=== PATIENT | male | born 1995 | race Hispanic/Latino ===

== ENCOUNTER 2021-10-14 00:51 | Emergency (ER) | payer BC, SELFPAY ==
[2021-10-14 00:53] VITALS: BP 150/112; PULSE 57; RESP 28; TEMP 36.5; O2SAT 100
[2021-10-14 00:54] VITALS: BP 150/112; PULSE 50; RESP 28; TEMP 36.5; O2SAT 98; BMI 28.0
--- NOTE | 2021-10-14 01:13 | CT_ITS ---
STUDY: CT ABDOMEN AND PELVIS WITH CONTRAST REASON FOR EXAM: Male, 26 years old. LLQ abd pain Left sided abdominal pain x2 hours, history of appendectomy. RADIATION DOSAGE (If Supplied By Facility): CTDIvol = ( 15.31 ) mGy, DLP = ( 809.28 ) mGycm TECHNIQUE: Transaxial images were obtained from the dome of the diaphragm to the symphysis pubis without oral contrast. IV 100mL Isovue-370 was administered. Sagittal and coronal images were reconstructed. Individualized dose optimization techniques were used for this CT. COMPARISON: None. FINDINGS: LOWER CHEST: Unremarkable. LIVER: Unremarkable. GALLBLADDER/BILE DUCTS: Unremarkable. PANCREAS: Unremarkable. SPLEEN: Unremarkable. ADRENAL GLANDS: Unremarkable. KIDNEYS / URETERS: There is a 5 mm calculus in the proximal left ureter, just distal to the ureteropelvic junction. The proximal left ureter is dilated with moderate left hydronephrosis and perinephric stranding. No hydronephrosis on the right. BOWEL / MESENTERY: Unremarkable. No bowel obstruction. APPENDIX: Surgically absent. PERITONEUM: No free air. No free fluid. VESSELS: Abdominal aorta is normal caliber. RETROPERITONEUM: Unremarkable. REPRODUCTIVE ORGANS: Unremarkable. BLADDER: Unremarkable. ABDOMINAL WALL: Unremarkable. BONES: No acute abnormality. OTHER: None. CT/Abdomen/Pelvis W IV Cont ONLY IMPRESSION: Proximal left ureteral calculus with moderate left hydroureteronephrosis. Electronically Signed: Desi Amado MD at 2:09 EDT ,
--- NOTE | 2021-10-14 01:14 | ED.VIS.GI ---
HPI HPI - GI History of Present Illness Chief Complaint: Abd Pain Detail of Chief Complaint: Left lower quadrant abdominal pain starting 1 to 2 hours ago. Informant: patient Abdominal Pain/Flank Pain Onset: Today and Hours Timing: Continuous Quality: Sharp and Stabbing Location: LLQ and Left Flank Current Severity: Moderate Maximum Severity: Moderate Worsened by: Nothing Relieved by: Nothing Nausea/Vomiting/Emesis GI Symptom: Positive for Nausea; Negative for Vomiting Onset: Today Severity: Mild Diarrhea/Melena/Hematochezia GI Symptom: Negative for Diarrhea, Melena or Hematochezia Associated Symptoms Associated Symptoms: Negative for Dysuria, Frequency, Hematuria or Urgency Narrative Narrative: 26-year-old male prior appendectomy. Said he was feeling fine he woke up around midnight or so with left lower quadrant abdominal pain. When he went to sleep he said he was feeling fine without having any pain. He denies any fever or chills. No dysuria or hematuria. No history of kidney stones. He has nausea but no vomiting. No diarrhea or constipation. Denies any type of abdominal trauma. Denies any recent weight loss or abdominal pain. He states he is never had pain like this before and he has no history of diverticulitis. Prior similar symptoms: No Recent Illness/Hospitalization: No PFSH PFSH Medical History no medical history no medical history Home Medications hydrocodone-acetaminophen 5-325mg 5mg-325mg 1 tab PO Q4H PRN pain 4 days #20 tabs 10/14/21 [Rx Last Taken Unknown] ondansetron 4 mg disintegrating tablet 4 mg PO Q6H PRN nausea and vomiting #7 tabs 10/14/21 [Rx Last Taken Unknown] Allergy/AdvReac Type Severity Reaction Status Date / Time No Known Allergies Allergy Verified 10/14/21 00:57 Social History Smoking Status: Never smoker ROS ROS ED ROS Narrative Left lower quadrant abdominal pain. Nausea. Review of Systems ROS Unobtainable: Denies due to encephalopathy Constitutional Constitutional ED: Denies chills or fever(s) ENT ENT ED: Denies ear pain Cardiovascular Cardiovascular: Denies chest pain Respiratory/Chest Respiratory/Chest: Denies cough or dyspnea Gastrointestinal Gastrointestinal: Reports abdominal pain and nausea; Denies constipation, diarrhea, melena or vomiting Genitourinary Genitourinary ED: Denies dysuria or hematuria Musculoskeletal Musculoskeletal: Denies arthralgias Integumentary Denies abscess Neurologic Neurologic: Denies headache(s) Psychiatric Psychiatric: Denies anxiety Endocrine Endocrinology: Denies polydipsia Hematologic/Lymphatic Hematologic/Lymphatic: Denies easy bleeding Allergic/Immunologic Allergic/Immunologic ED: Denies mouth swelling or tongue swelling EXAM Physical Exam Narrative Exam Narrative: 26-year-old male vital signs stable afebrile. H EENT exam unremarkable. Moist [place] membranes. Neck nontender no lymphadenopathy. Lungs clear to auscultation bilaterally. Heart regular rhythm rate about 55 no murmur. Chest were nontender. Abdomen soft nondistended normal bowel sounds. No peritoneal signs. Tender in the left lower quadrant. No hernia or mass. No obstruction. No pulsatile mass. Both the right upper and right lower quadrants are unremarkable. Moving all 4 extremities. Back nontender. Neurologically is awake and alert. Const Vital Signs: 10/14/21 00:54 10/14/21 00:53 Temperature 97.7 F L 97.7 F L Temperature Source Oral Oral Pulse Rate 50 L 57 L Respiratory Rate 28 H 28 H Blood Pressure 150/112 H 150/112 H Blood Pressure Mean 124 124 Pulse Ox 98 100 Oxygen Delivery Method Room Air Room Air Positive well nourished and well developed; Negative for obese, cachectic, contractures or unkempt General Appearance ED: well developed and NAD; Negative for unkempt, cachectic or contractures Nutritional Appearance: Negative for cachectic or obese HEENT Reports moist mucous membranes normocephalic and atraumatic; Negative for trauma or tenderness Eyes PERRL and EOMs intact bilaterally General Eye ED: Negative for pale conjunctiva or scleral icterus Neck no lymphadenopathy, supple and no JVD General: Negative for tenderness Carotids: Negative for other Lymph Lymphatic: Negative for other Resp normal respiratory effort and clear to auscultation bilaterally Effort and Inspection: Negative for respiratory distress Auscultation: Negative for rales, rhonchi or wheezes Cardio regular rhythm, S1 normal heart sound, S2 normal heart sound and no murmurs; Negative for regular rate Rate: bradycardia GI non-distended and no masses; Negative for non-tender Inspection: Negative for abdominal distention Auscultation: normoactive bowel sounds Palpation: soft and tender; Negative for guarding, rigid, hepatomegaly, splenomegaly, hernia, mass, pulsatile mass or rebound tenderness present Back/Spine no CVA tenderness General Back: Negative for CVA tenderness Cervical Spine: Negative for cervical spine tenderness Thoracic Spine / Upper Back: Negative for thoracic spinal tenderness Lumbar Spine / Lower Back: Negative for lumbar spinal tenderness Extremity full ROM General Extremety ED: Negative for edema or tenderness General Extremity: Negative for edema Neuro CN's II-XII intact bilaterally and moves all extremities Sensorium / Orientation: alert, oriented to person, oriented to place, oriented to time and orientation impaired; Negative for confused, lethargic or stuporous Sensory Exam: No sensory level loss detected Motor Exam: strength 5/5 throughout Psych mental status grossly normal and thought process normal Appearance: Negative for unkempt Attitude: No agitated Mood & Affect: Negative for depressed Skin no wounds General Skin Exam: Negative for jaundice Lesions: no lesions Rashes: no rashes Trauma: Negative for abrasion Nails: Negative for discolored MDM MDM MDM Narrative Medical decision making narrative: 26-year-old with left lower quadrant left flank pain. Differential would include diverticulitis, kidney stone versus hernia. On exam he did not have any obvious hernia. He is never had a kidney stone or diverticulitis before. He is having pain nausea and vomiting. He will be treated with IV morphine, Toradol Zofran and IV fluids. CAT scan and labs are being obtained. Repeat exam patient doing well at 2:55 PM. He feels much better after being treated with pain medication. Currently is pain-free. His nausea is resolved. He had I discussed his test results and the diagnosis of the left ureteral proximal 5 mm kidney stone. He is comfortable being discharged home. He will be written for [employer] which we will fill here at our pharmacy if possible. Zofran prescription to have at home in case he is nauseated. And Motrin with his pain. Return if increasing pain, fever or intractable vomiting. Otherwise follow-up with urology. Urine strainer to evaluate passage of the stone. Lab Data Attestation: I reviewed the patient's lab results. Lab results narrative: CBC normal. White count 8.9. H&H of 14.8 and 44. Platelets 233. Electrolytes show a gap of 6 and a normal BUN and creatinine. Normal liver enzymes. Normal lipase of 117. Glucose is 125. Urinalysis showed gross hematuria with 250 occult blood and grade 100 red cells. No white cells or bacteria. No nitrites. CAT scan shows a left proximal 5 mm ureteral calculi with hydronephrosis and hydroureter. Labs: Laboratory Results - last 24 hr 10/14/21 10/14/21 10/14/21 01:05 01:05 02:10 WBC 8.9 RBC 5.04 Hgb 14.8 Hct 44.2 MCV 87.7 MCH 29.4 MCHC 33.5 RDW Std Deviation 38.0 RDW Coeff of Darius 11.9 Plt Count 233 MPV 9.2 Immature Gran % (Auto) 0.400 Neut % (Auto) 52.8 Lymph % (Auto) 35.8 [place] % (Auto) 8.6 Eos % (Auto) 2.1 Baso % (Auto) 0.3 Absolute Neuts (auto) 4.7 Absolute Lymphs (auto) 3.20 Nucleated RBC % 0 Sodium 140 Potassium 3.8 Chloride 107 Carbon Dioxide 27.0 Anion Gap 6 BUN 12 Creatinine 0.95 Estim Creat Clear Calc 119.53 Est GFR (MDRD) Af Amer 121 Est GFR (MDRD) Non-Af 100 BUN/Creatinine Ratio 12.6 Glucose 125 H Calcium 9.3 Total Bilirubin 0.30 AST 17 ALT 30 Alkaline Phosphatase 60 Total Protein 7.4 Albumin 3.9 Globulin 3.5 Albumin/Globulin Ratio 1.1 Lipase 117 Urine Color Red Urine Clarity Cloudy Urine pH 6.5 Ur Specific [place] 1.015 Urine Protein 100 H Urine Glucose (UA) Normal Urine Ketones 5 H Urine Occult Blood 250 H Urine Nitrite Negative Urine Bilirubin Negative Urine Urobilinogen Normal Ur Leukocyte Esterase 100 H Urine RBC 0 SEEN Urine WBC >100 SEEN Ur Squamous Epith Cells 0 SEEN Urine Bacteria 0 SEEN Urine Mucus 0 SEEN Radiography Diagnostic Testing: Clinical Impression(s) from Imaging Studies Abdomen/Pelvis CT 10/14/21 01:13 IMPRESSION: Proximal left ureteral calculus with moderate left hydroureteronephrosis. Electronically Signed: Desi Amado MD at 2:09 EDT , Discharge Plan Triage Chief Complaint: Abd Pain ED Provider: Kirby Sr Dx/Rx/DC Orders Clinical Impression: Acute left flank pain, Calculus of left ureter Instructions: ED Kidney Stone w/ Colic Prescriptions: New hydrocodone-acetaminophen 5-325 mg tablet 1 tab PO Q4H PRN (Reason: pain) 4 Days Qty: 20 0RF ondansetron 4 mg tablet,disintegrating 4 mg PO Q6H PRN (Reason: nausea and vomiting) Qty: 7 0RF Primary Care Provider: Care Physician,No Primary Referrals: Corwin Duron MD [Med Staff - Active Staff] - 3-5 Days if not improving Care Physician,No Primary [Primary Care Provider] - Activity Restrictions/Additional Instructions: Plenty of fluids primarily water and rest. [place] for severe pain and you may take it with also Motrin. Zofran as needed if you get nauseated. You have a 5 mm kidney stone that should pass. [place] for the pain. And Motrin. Return if intractable pain that you cannot control, intractable vomiting or you develop a fever. Strain your urine to make sure the stone passes. It should pass in the next 24 to 48 hours. Disposition Disposition: Home, Self Care
[2021-10-14 01:21] LABS: Absolute Neutrophil Count 4.7 X10^3/uL (2.0-7.7); Basophil# 0.03 X10^3/uL; Basophil% 0.3 % (0-1); Eosinophil# 0.19 X10^3/uL; Eosinophils% 2.1 % (0-5); Hematocrit 44.2 % (40-54); Hemoglobin 14.8 g/dL (13.0-16.5); Lymphocyte % 35.8 % (19-41); Mean Corp Hgb Conc 33.5 g/dL (32-36); Mean Corpuscular Hgb 29.4 pg (27.0-32.0); Mean Corpuscular Volume 87.7 fL (80-94); Mean Platelet Vol. 9.2 fl (6.2-12.0); Monocyte# 0.77 X10^3/uL; Monocyte% 8.6 % (0-10); NRBC Flagged by Analyzer 0 % (0-5); Neutrophil # 4.71 X10^3/uL (2.7-7.7); Neutrophil % 52.8 % (47-70); Platelet Count 233 K/mm3 (150-450); RBC Distribution Width CV 11.9 % (11.6-14.6); Red Blood Count 5.04 M/mm3 (4.6-6.2); White Blood Count 8.9 K/mm3 (4.4-11.0)
[2021-10-14] MEDS: Ketorolac 30 MG/ML Syringe IV (01:21)
[2021-10-14] MEDS: morphine 8 MG/ML Syringe IV (01:21)
[2021-10-14] MEDS: Ondansetron 4 MG/2 ML Vial IV (01:21)
[2021-10-14] MEDS: 0.9% Normal Saline 1,000 ML 125 ML IV (01:24)
[2021-10-14 01:38] LABS: ALB/GLOB Ratio 1.1 RATIO (0.9-2.4); AST(SGOT) 17 U/L (15-37); Alanine Aminotransfer ALT/SGPT 30 U/L (16-61); Albumin, Serum 3.9 g/dL (3.2-5.0); Alkaline Phosphatase 60 U/L (45-117); Anion Gap 6 (5-15); BUN 12 mg/dL (7-18); BUN/Creat Ratio 12.6 RATIO (10-20); Calcium,Total 9.3 mg/dL (8.5-10.1); Chloride 107 mmol/L (98-107); Creatinine, Serum 0.95 mg/dL (0.70-1.30); EST Glomerular Filtration Rate 100 mL/min (>60); Est Glom Filt Rate - Afr Amer 121 mL/min (>60); Estimated Creatinine Clearance 119.53 ml/min; Globulin 3.5 g/dL (2.2-4.2); Glucose 125 mg/dL (74-106); Lipase 117 U/L (73-393); Potassium 3.8 mmol/L (3.5-5.1); Protein, Total 7.4 g/dL (6.4-8.2); Sodium Level 140 mmol/L (136-145)
[2021-10-14 02:15] LABS: Bacteria 0 SEEN /hpf (None Seen); Mucous, Urine 0 SEEN /hpf (<or=2+); Red Blood Cells-Urine 0 SEEN /hpf (0-5); Squamous Epithelial Cells - UA 0 SEEN /hpf (0-5)
[2021-10-14 02:17] LABS: Color, Urine Red (Yellow); Glucose, Dipstick Normal (Normal); Ketone-Dipstick 5 mg/dl (Negative); Leukocyte Esterase-Dipstick 100 /ul (Negative); Nitrite-Dipstick Negative (Negative); Occult Blood-Urine 250 /ul (Negative); Protein-Dipstick 100 mg/dl (Negative); Specific Gravity, Urine 1.015 (1.002-1.030); Urine Bilirubin Dipstick Negative (Negative); Urine Clarity Cloudy (Clear); Urine Urobilinogen Normal (Normal); Urine pH 6.5 (5.0 - 8.0)
[2021-10-14 02:30] LABS: White Blood Cells >100 SEEN /hpf (0-5)
[2021-10-14 03:32] VITALS: BP 105/58; PULSE 56; RESP 18; O2SAT 97
== END 2021-10-14 03:50 | disposition home or self-care (01) ==
PROVIDERS: Emergency Provider Emergency Medicine; Visit Provider Emergency Medicine
DX: N13.2 Hydronephrosis with renal and ureteral calculous obstruction (principal)
CPT/HCPCS: 74177; 80053; 81001; 83690; 85025; 96361; 96374; 96375; 99282; J7030; Q9967; A4216; J2405

== ENCOUNTER 2021-11-18 11:00 | Emergency (ER) | payer BC, SELFPAY ==
[2021-11-18 11:02] VITALS: BP 139/78; PULSE 79; RESP 18; TEMP 36.6; O2SAT 100; BMI 28.7
--- NOTE | 2021-11-18 11:24 | CT_ITS ---
EXAM: CT ABDOMEN AND PELVIS WITHOUT INTRAVENOUS CONTRAST CLINICAL INDICATION: Kidney Stone TECHNIQUE: Helically acquired images were obtained of the abdomen and pelvis without intravenous contrast. This CT exam was performed using one or more of the following dose reduction techniques: automated exposure control, adjustment of the mA and/or kV according to patient size, and/or use of iterative reconstruction technique. This report was created using [employer] report generation technology. COMPARISON: CT Abdomen Pelvis dated 10/14/2021 FINDINGS: LOWER THORAX: Normal. Lung bases are clear. No cardiomegaly. No pericardial effusion. ABDOMEN: LIVER: Normal. Homogeneous. GALLBLADDER AND BILE DUCTS: Normal. No calcified gallstones. No gallbladder distention or wall edema. No intra- or extrahepatic biliary ductal dilation. PANCREAS: Normal. No focal cystic mass. SPLEEN: Normal. Normal size without focal cystic or solid mass. ADRENALS: Normal. No nodules. KIDNEYS AND URETERS: Previously noted left ureteral stone at the L2-3 level has progressed and now present at the level of the crossing iliac vessels. There is persistent left hydronephrosis and hydroureter. STOMACH AND BOWEL: Normal. No bowel distention. No focal inflammatory change. PELVIS: APPENDIX: No evidence of acute appendicitis. BLADDER: Normal. REPRODUCTIVE: Unremarkable as visualized. No mass. ABDOMEN and PELVIS: INTRAPERITONEAL SPACE: Normal. No ascites or other fluid collection. No free air. BONES/JOINTS: Normal. No suspicious lytic or blastic abnormality. SOFT TISSUES: Normal. No discrete abdominal or pelvic wall hernia. VASCULATURE: Normal. Abdominal aorta is non-dilated. LYMPH NODES: Normal. No enlarged lymph nodes. CT/Abdomen/Pelvis without Cont IMPRESSION: Progression of the left ureteral stone from the L2-3 level to the S2 level. Persistent left hydronephrosis and hydroureter. Electronically Signed: Alex Elizabeth MD at 12:13 EDT ,
--- NOTE | 2021-11-18 11:24 | EX.ED.GUMALE ---
HPI History of Present Illness Chief Complaint: Flank Pain Narrative Narrative: 18-year-old male with history of kidney stones presenting with acute left-sided flank pain. He states it starts in the left lower back and radiates to the front. He states he had 1 of these in September and this was his first kidney stone. He states that after he was diagnosed with a 5 mm ureteral stone the pain dissipated. He has not seen blood in follow-up. He did not have any pain until this morning. He notes that today he has dark urine which is new for him. Patient does state that he is nauseous. He took Tylenol prior to arrival without relief. [facility] Medical History (Updated 11/18/21 @ 12:[address] Woody Akhtar, ) Kidney stones Home Medications hydrocodone-acetaminophen 5-325mg 5mg-325mg 1 tab PO Q4H PRN pain 4 days #20 tabs 10/14/21 [Rx Last Taken Unknown] ondansetron 4 mg disintegrating tablet 4 mg PO Q6H PRN nausea and vomiting #7 tabs 10/14/21 [Rx Last Taken Unknown] hydrocodone-acetaminophen 5-325mg 5mg-325mg 1 tab PO Q6H PRN pain 3 days #12 tabs 11/18/21 [Rx Last Taken Unknown] ondansetron 4 mg disintegrating tablet 4 mg PO Q8H PRN nausea and vomiting #12 tabs 11/18/21 [Rx Last Taken Unknown] Allergy/AdvReac Type Severity Reaction Status Date / Time No Known Allergies Allergy Verified 11/18/21 11:01 Social History Smoking Status: Never smoker ROS ROS ED Constitutional Constitutional ED: Denies chills or fever(s) Eyes Eyes: Denies change in vision ENT ENT ED: Denies rhinorrhea or sore throat Cardiovascular Cardiovascular: Denies chest pain or palpitations Respiratory/Chest Respiratory/Chest: Denies cough or dyspnea Gastrointestinal Gastrointestinal: Reports abdominal pain and nausea Genitourinary Genitourinary ED: Reports dysuria and hematuria Musculoskeletal Musculoskeletal: Reports back pain; Denies arthralgias Integumentary Denies abscess Neurologic Neurologic: Denies headache(s) or paresthesias Psychiatric Psychiatric: Denies anxiety or depression EXAM Physical Exam Const Vital Signs: 11/18/21 11:02 Temperature 98 F Temperature Source Temporal Pulse Rate 79 Respiratory Rate 18 Blood Pressure 139/78 H Blood Pressure Mean 98 Pulse Ox 100 Oxygen Delivery Method Room Air Positive well nourished General Appearance ED: NAD and pallor HEENT normocephalic Eyes PERRL and EOMs intact bilaterally Cardio regular rate and regular rhythm GI GI Narrative: Tenderness palpation left lower quadrant. Abdomen soft. No palpable masses. Bladder / Kidney Exam: CVA tenderness left Back/Spine General Back: CVA tenderness left Neuro oriented x3 and CN's II-XII intact bilaterally Sensorium / Orientation: alert Psych mental status grossly normal Skin General Skin Exam: jaundice and pallor MDM MDM MDM Narrative Medical decision making narrative: Patient seen and evaluated on arrival. Vital signs are stable and he is afebrile. Patient appears to be in pain and is medicated with Toradol, morphine, Zofran. IV fluids were given. I will obtain a CBC and BMP and a flank study. CBC shows a leukocytosis of 18.3. Hemoglobin Normal. Platelets 291. Renal function electrolytes within normal limits. Urinalysis shows evidence of hematuria without evidence of infection. I suspect the patient's white blood cell count is likely due to his vomiting. His pain is controlled with morphine and Zofran. He will be started on [place] and Zofran for home. He is given follow-up with urology and encouraged to make this appointment this time return precautions were discussed. Impression: 1. Leukocytosis 2. Left-sided ureteral stone 3. Left-sided hydronephrosis 4. Hematuria 5. Nausea/vomit Lab Data Attestation: I reviewed the patient's lab results. Labs: Laboratory Results - last 24 hr 11/18/21 11/18/21 11/18/21 11:20 11:25 11:25 WBC 18.3 H RBC 5.15 Hgb 15.4 Hct 45.7 MCV 88.7 MCH 29.9 MCHC 33.7 RDW Std Deviation 38.4 RDW Coeff of Darius 11.7 Plt Count 291 MPV 9.1 Immature Gran % (Auto) 0.300 Neut % (Auto) 79.7 H Lymph % (Auto) 10.6 L [place] % (Auto) 8.8 Eos % (Auto) 0.3 Baso % (Auto) 0.3 Absolute Neuts (auto) 14.5 H Absolute Lymphs (auto) 1.93 Nucleated RBC % 0 Platelet Estimate ADEQUATE RBC Morphology NORM C+C Sodium 141 Potassium 3.7 Chloride 104 Carbon Dioxide 28.0 Anion Gap 9 BUN 15 Creatinine 1.09 Estim Creat Clear Calc 104.18 Est GFR (MDRD) Af Amer 103 Est GFR (MDRD) Non-Af 85 BUN/Creatinine Ratio 13.8 Glucose 107 H Calcium 10.0 Urine Color [place] Urine Clarity Sl. Cloudy Urine pH 5.0 Ur Specific [place] 1.025 Urine Protein 100 H Urine Glucose (UA) Normal Urine Ketones 50 H Urine Occult Blood 250 H Urine Nitrite Negative Urine Bilirubin 1 H Urine Urobilinogen 4 H Ur Leukocyte Esterase 25 H Urine RBC 50-100 SEEN Urine WBC 0-5 SEEN Ur Squamous Epith Cells 0 SEEN Urine Bacteria 0 SEEN Urine Mucus 0 SEEN Radiography Diagnostic Testing: Clinical Impression(s) from Imaging Studies Abdomen/Pelvis CT 11/18/21 11:24 IMPRESSION: Progression of the left ureteral stone from the L2-3 level to the S2 level. Persistent left hydronephrosis and hydroureter. Electronically Signed: Alex Elizabeth MD at 12:13 EDT , Discharge Plan Triage Chief Complaint: Flank Pain Other Complaint: Abd Pain Complaint ED Provider: Woody Akhtar Dx/Rx/DC Orders Instructions: ED Kidney Stone w/ Colic Prescriptions: New hydrocodone-acetaminophen 5-325 mg tablet 1 tab PO Q6H PRN (Reason: pain) 3 Days Qty: 12 0RF ondansetron 4 mg tablet,disintegrating 4 mg PO Q8H PRN (Reason: nausea and vomiting) Qty: 12 0RF No Action hydrocodone-acetaminophen 5-325 mg tablet 1 tab PO Q4H PRN (Reason: pain) 4 Days Qty: 20 0RF ondansetron 4 mg tablet,disintegrating 4 mg PO Q6H PRN (Reason: nausea and vomiting) Qty: 7 0RF Primary Care Provider: Care Physician,No Primary Referrals: Corwin Duron MD [Med Staff - Active Staff] - As soon as possible Care Physician,No Primary [Primary Care Provider] - Disposition Disposition: Home, Self Care
[2021-11-18] MEDS: Ondansetron 4 MG/2 ML Vial IV (11:31)
[2021-11-18] MEDS: Morphine 4 MG/ML Syringe IV (11:32)
[2021-11-18] MEDS: Ketorolac 15 MG/ML Vial IV (11:32)
[2021-11-18 11:34] LABS: Bacteria 0 SEEN /hpf (None Seen); Mucous, Urine 0 SEEN /hpf (<or=2+); Squamous Epithelial Cells - UA 0 SEEN /hpf (0-5)
[2021-11-18] MEDS: 0.9% Normal Saline 1,000 ML 999 ML IV (11:34)
[2021-11-18 11:36] LABS: Absolute Lymphocyte Count 1.93 X10^3/uL (0.83-4.51); Absolute Neutrophil Count 14.5 X10^3/uL (2.0-7.7); Basophil# 0.06 X10^3/uL; Basophil% 0.3 % (0-1); Eosinophil# 0.05 X10^3/uL; Eosinophils% 0.3 % (0-5); Hematocrit 45.7 % (40-54); Hemoglobin 15.4 g/dL (13.0-16.5); Lymphocyte # 1.93 X10^3/ul (0.83-4.51); Lymphocyte % 10.6 % (19-41); Mean Corp Hgb Conc 33.7 g/dL (32-36); Mean Corpuscular Hgb 29.9 pg (27.0-32.0); Mean Corpuscular Volume 88.7 fL (80-94); Mean Platelet Vol. 9.1 fl (6.2-12.0); Monocyte# 1.61 X10^3/uL; Monocyte% 8.8 % (0-10); NRBC Flagged by Analyzer 0 % (0-5); Neutrophil # 14.54 X10^3/uL (2.7-7.7); Neutrophil % 79.7 % (47-70); POSITIVE DIFFERENTIAL YES; Platelet Count 291 K/mm3 (150-450); RBC Distribution Width CV 11.7 % (11.6-14.6); RBC Distribution Width SD 38.4 fl (35.1-43.9); Red Blood Count 5.15 M/mm3 (4.6-6.2); White Blood Count 18.3 K/mm3 (4.4-11.0)
[2021-11-18 11:36] LABS: Color, Urine Amber (Yellow); Glucose, Dipstick Normal (Normal); Ketone-Dipstick 50 mg/dl (Negative); Leukocyte Esterase-Dipstick 25 /ul (Negative); Nitrite-Dipstick Negative (Negative); Occult Blood-Urine 250 /ul (Negative); Protein-Dipstick 100 mg/dl (Negative); Specific Gravity, Urine 1.025 (1.002-1.030); Urine Clarity Sl. Cloudy (Clear); Urine Urobilinogen 4 mg/dl (Normal)
[2021-11-18 11:37] LABS: Urine Bilirubin Dipstick 1 mg/dL (Negative)
[2021-11-18 11:42] LABS: Differential Indicated SCAN CRITERIA MET
[2021-11-18 11:45] LABS: Red Blood Cells-Urine 50-100 SEEN /hpf (0-5); White Blood Cells 0-5 SEEN /hpf (0-5)
[2021-11-18 11:49] LABS: Anion Gap 9 (5-15); BUN 15 mg/dL (7-18); BUN/Creat Ratio 13.8 RATIO (10-20); Chloride 104 mmol/L (98-107); Creatinine, Serum 1.09 mg/dL (0.70-1.30); EST Glomerular Filtration Rate 85 mL/min (>60); Est Glom Filt Rate - Afr Amer 103 mL/min (>60); Estimated Creatinine Clearance 104.18 ml/min; Glucose 107 mg/dL (74-106); Potassium 3.7 mmol/L (3.5-5.1); Sodium Level 141 mmol/L (136-145)
[2021-11-18 12:12] LABS: Platelet Estimate ADEQUATE (ADEQ); Red Cell Morphology NORM C+C NORMAL (NORM C&C)
[2021-11-18 13:01] VITALS: BP 126/78; PULSE 88; RESP 16; TEMP 36.9; O2SAT 100
== END 2021-11-18 13:01 | disposition home or self-care (01) ==
PROVIDERS: Emergency Provider Student in an Organized Health Care Education/Training Program; Visit Provider Student in an Organized Health Care Education/Training Program
DX: N13.2 Hydronephrosis with renal and ureteral calculous obstruction (principal); D72.829 Elevated white blood cell count, unspecified; Z87.442 Personal history of urinary calculi
CPT/HCPCS: 74176; 80048; 81001; 85025; 96361; 96374; 96375; 99283; J7030; A4216; J2405